=== PATIENT | male | born 1985 | race American Indian/Alaskan Native ===

== ENCOUNTER 2019-07-31 13:42 | Day surgery (SDC) | payer OTHER ==
[~2019-07-31] VITALS: Ht 167.6 cm; Wt 60.3 kg
[~2019-07-31 13:42] MED LIST: ALBU90I INH; HYDACE7.5L PO; ONDA4 PO
== END 2019-07-31 15:33 | disposition home or self-care (01) ==
LOC: ORSCSDS 13:42
PROVIDERS: Internal Medicine Gastroenterology
PROC: 0D758ZZ Dilation of Esophagus, Via Natural or Artificial Opening Endoscopic (ICD-10-PCS; principal; 2019-07-31 15:00)
PROC: 0DB58ZX Excision of Esophagus, Via Natural or Artificial Opening Endoscopic, Diagnostic (ICD-10-PCS; principal; 2019-07-31 15:00)
DX: K22.70 Barrett's esophagus without dysplasia (principal); R13.10 Dysphagia, unspecified; K22.2 Esophageal obstruction; K44.9 Diaphragmatic hernia without obstruction or gangrene; J45.909 Unspecified asthma, uncomplicated
CPT/HCPCS: 88305; C1726; J2250; J2704; J7120

== ENCOUNTER 2019-08-14 09:22 | Day surgery (SDC) | payer OTHER ==
[~2019-08-14] VITALS: Ht 167.6 cm; Wt 61.5 kg
--- NOTE | 2019-08-14 11:11 | NUR ---
08/14/19 1110 Jose Guadalupe [place] LATE ENTRY: PT LARYNGOSPASM DURING PROCEDURE. O2 SATURATION DOWN TO MID 80S. DR FLOWERS ORDERED LIDOCAINE 2% 5MLS. 2ND NURSE IN FOR AIRWAY SUPPORT. PT BACK UP QUICKLY TO MID TO HIGH 90S. PT MAINTAINED MID TO HIGH 90S FOR REST OF THE PROCEDURE.
== END 2019-08-14 11:10 | disposition home or self-care (01) ==
LOC: ORSCSDS 09:22
PROVIDERS: Internal Medicine Gastroenterology
PROC: 0D758ZZ Dilation of Esophagus, Via Natural or Artificial Opening Endoscopic (ICD-10-PCS; principal; 2019-08-14 10:30)
DX: K22.70 Barrett's esophagus without dysplasia (principal); R13.10 Dysphagia, unspecified; K22.2 Esophageal obstruction; K44.9 Diaphragmatic hernia without obstruction or gangrene; K21.9 Gastro-esophageal reflux disease without esophagitis; J45.909 Unspecified asthma, uncomplicated
CPT/HCPCS: C1726; J2704; J7120

== ENCOUNTER 2023-02-22 11:21 | Emergency (ER) | payer OTHER ==
[~2023-02-22] VITALS: Ht 167.6 cm; Wt 61.2 kg
[2023-02-22 11:30] VITALS: BP 127/87
[2023-02-22] MEDS ORDERED: OXYCODONE-ACET120 ML PO (14:07)
[2023-02-22] MEDS ORDERED: OXYC1L PO (15:02)
== END 2023-02-22 14:20 | disposition home or self-care (01) ==
LOC: ER 11:21
DX: S02.602A Fracture of unspecified part of body of left mandible, initial encounter for closed fracture (principal); S02.641A Fracture of ramus of right mandible, initial encounter for closed fracture; W06.XXXA Fall from bed, initial encounter
CPT/HCPCS: 70486; 96372; 99283-25; A9270; J3010

== ENCOUNTER 2023-03-01 11:00 | Day surgery (SDC) | payer OTHER ==
[~2023-03-01] VITALS: Ht 167.6 cm; Wt 57.0 kg
[~2023-03-01 11:00] MED LIST changes: +OXYC1L PO; +OXYCODONE-ACET120 ML PO
--- NOTE | 2023-03-01 12:34 | NUR ---
03/01/[address] ADMINISTERED AFRIN 2 SPRAYS TO EACH NOSTRIL, PT ALFRED WELL.
--- NOTE | 2023-03-01 13:25 | NUR ---
03/01/23 1325 Jose Guadalupe [place] LIDOCAINE 2% 1:100,000 DILUTED W/ NS 1:1 TO MAKE LIDOCAINE 1% 1:200,000 FOR INJECTION AT [facility] BY DR CHUNG. 2.5 ML INJECTED.
[2023-03-01 16:59] VITALS: BP 132/99
--- NOTE | 2023-03-01 17:23 | NUR ---
03/01/23 1723 Jerry Delgado AFTER FENTANYL ADMINISTRATION, PT SUSTAINED O2 SATURATION BETWEEN 92% AND MID 80'S IN PAR . DR. CHAMPION CONSULTED AND ORDERED NO MORE OPIOID ADMINISTRATION. PT SUSTAINED O2 AT 94% AT TIME OF DISCHARGE. HE DENIED NAUSEA UPON DISCHARGE. DR. CHAMPION CONSULTED AND APPROVED DISCHARGE. ORAL SUCTIONING IN PAR INITIALLY YIELDED SPUTUM AND BRIGHT RED DRAINAGE. BY TIME OF DISCHARGE SUCTIONING YIELDED ONLY SPUTUM. PT ADVISED TO WAIT 4 HOURS FROM LAST FENTANYL ADMINISTRATION BEFORE TAKING PERSCRIBED PAIN MEDICATION, PER DR. CHUNG'S INSTRUCTIONS.
== END 2023-03-01 16:57 | disposition home or self-care (01) ==
LOC: ORSCSDS 11:00
PROVIDERS: Otolaryngology
PROC: 0NST34Z Reposition Right Mandible with Internal Fixation Device, Percutaneous Approach (ICD-10-PCS; principal; 2023-03-01 12:45)
DX: S02.602A Fracture of unspecified part of body of left mandible, initial encounter for closed fracture (principal); S02.621A Fracture of subcondylar process of right mandible, initial encounter for closed fracture; J45.909 Unspecified asthma, uncomplicated; F43.10 Post-traumatic stress disorder, unspecified; F41.8 Other specified anxiety disorders; Z79.899 Other long term (current) drug therapy
CPT/HCPCS: A9270; C1713; J0330; J1100; J1885; J2001; J2405; J2704; J2765; J3010; J7120

== ENCOUNTER 2023-03-22 19:37 | Emergency (ER) | payer OTHER ==
[~2023-03-22] VITALS: Ht 170.2 cm; Wt 63.5 kg
[2023-03-22 19:44] VITALS: BP 132/98
[2023-03-22 20:14] LABS: BASOPHILS ABSOLUTE AUTO 0.05 K/mm3 (0.00-0.23); BASOPHILS PERCENT AUTO 1 % (0-2); EOSINOPHILS ABSOLUTE AUTO 0.16 K/mm3 (0.00-0.68); EOSINOPHILS PERCENT AUTO 2 % (0-6); Hemoglobin 15.4 g/dL (13.5-17.5); IMMATURE GRAN ABSOLUTE AUTO 0.04 K/mm3 (0.00-0.10); IMMATURE GRAN PERCENT AUTO 0 % (0-1); LYMPHOCYTES ABSOLUTE AUTO 1.74 K/mm3 (0.84-5.20); LYMPHOCYTES PERCENT AUTO 18 % (21-46); MONOCYTES PERCENT AUTO 6 % (4-13); Mean Corpuscular HGB 30.9 pg (26.0-34.0); Mean Corpuscular HGB Conc 34.2 g/dL (31.5-36.5); Mean Corpuscular Volume 90 fL (80-100); Mean Platelet Volume 10.1 fL (9.1-12.4); NEUTROPHILS ABSOLUTE AUTO 7.19 K/mm3 (1.96-9.15); NEUTROPHILS PERCENT AUTO 74 % (41-73); Platelet Count 465 K/mm3 (150-400); RDW Coefficient Variation 12.1 % (11.7-14.2); Red Blood Cell Count 4.98 M/mm3 (4.30-5.90); White Blood Cell Count 9.78 K/mm3 (4.00-11.30)
[2023-03-22 20:34] LABS: Albumin, Blood 3.7 g/dL (3.4-5.0); Albumin/Globulin Ratio 0.9 (0.8-1.8); Bilirubin, Total 0.5 mg/dL (0.1-1.0); Bun/Creatinine Ratio 6.4 (12.0-20.0); Calcium, Blood 9.7 mg/dL (8.5-10.1); Creatinine, Blood 0.93 mg/dL (0.60-1.20); Globulin, Blood 3.9 g/dL (2.2-4.0); Potassium, Blood 3.9 mmol/L (3.5-5.5); Total Protein, Blood 7.6 g/dL (6.4-8.2)
== END 2023-03-22 20:54 | disposition home or self-care (01) ==
LOC: ER 19:37
PROVIDERS: Physician Assistant
DX: E86.0 Dehydration (principal); R63.8 Other symptoms and signs concerning food and fluid intake; J45.909 Unspecified asthma, uncomplicated; Z79.899 Other long term (current) drug therapy
CPT/HCPCS: 80053; 85025; 96360; 99282-25; J7030